=== PATIENT | female | born 1985 | race Caucasian/White ===

== ENCOUNTER 2017-02-13 19:10 | Emergency (ER) | payer SELFPAY ==
[~2017-02-13] VITALS: Ht 165.1 cm; Wt 103.0 kg
[~2017-02-13 19:10] MED LIST: VENTAER INH
[2017-02-13 19:13] VITALS: BP 110/77; PULSE 77; RESP 16; TEMP 97.8; O2SAT 100
[2017-02-13] MEDS ORDERED: IBUP800T23 PO (19:28)
[2017-02-13] MEDS ORDERED: AUGM875T3 PO (19:28)
--- NOTE | 2017-02-13 19:29 | PD ---
HPI Chief Complaint: Oral / Dental Pain or Problem Time Seen by Provider: 19:12 Travel History International Travel<30 days: No Contact w/Intl Traveler<30days: No Traveled to known affect area: No History of Present Illness HPI 31-year-old female presents to emergency department for evaluation of left sided facial pain and swelling times one day. Patient reports she has multiple decaying teeth in the left upper region. She also reports pain and tenderness in the left maxillary sinus with nasal congestion. Symptom onset 1 day ago. She reports the pain is constant, nonradiating, no aggravating or alleviating factors. Severity 5 out of 10. She denies fevers, chills, headache, dizziness , chest pain, shortness of breath, abdominal pain. PFSH Past Medical History Medical History: Denies Significant Hx Diminished Hearing: No Immunizations Current: Yes Tetanus Vaccination: > 5 Years Influenza Vaccination: No ?: Not LMP: 01-13-17 Social History Alcohol Use: No Tobacco Use: No Substance Use: No Allergies-Medications (Allergen,Severity, Reaction): Coded Allergies: Macrobid (Verified Allergy, Severe, Chest pain, 02/13/17) Penicillin (Verified Allergy, Severe, "Heavy chest", 02/13/17) Reported Meds & Prescriptions Reported Meds & Active Scripts Active Ibuprofen 800 Mg Tab 800 Mg PO Q8H PRN Augmentin (Amoxicillin-Clavulanate) 875-125 Mg Tab 1 Tab PO BID Review of Systems Except as stated in HPI: all other systems reviewed are Neg General / Constitutional: No: Fever Eyes: No: Visual changes HENT: Positive: Other (dental pain) Cardiovascular: No: Chest Pain or Discomfort Respiratory: No: Shortness of Breath Gastrointestinal: No: Abdominal Pain Genitourinary: No: Dysuria Musculoskeletal: No: Pain Skin: No Rash Neurologic: No: Weakness Physical Exam Narrative GENERAL: Alert, well-appearing female in no acute distress. SKIN: Focused skin assessment warm/dry. HEAD: Atraumatic. Normocephalic. EYES: Pupils equal and round. No scleral icterus. No injection or drainage. ENT: No nasal bleeding or discharge. Mucous membranes pink and moist. Point tenderness of the left maxillary sinus. No overlying erythema. Dental caries and decay present in tooth number 12-15 with surrounding gum erythema. Uvula midline. NECK: Trachea midline. No JVD. No lymphadenopathy. CARDIOVASCULAR: Regular rate and rhythm. No murmur appreciated. RESPIRATORY: No accessory muscle use. Clear to auscultation. Breath sounds equal bilaterally. GASTROINTESTINAL: Abdomen soft, non-tender, nondistended. Hepatic and splenic margins not palpable. NEUROLOGICAL: Awake and alert. No obvious cranial nerve deficits. Motor grossly within normal limits. Normal speech. PSYCHIATRIC: Appropriate mood and affect; insight and judgment normal. Data Data Last Documented VS Vital Signs Date Time Temp Pulse Resp B/P Pulse Ox O2 Delivery O2 Flow Rate FiO2 02/13/17 19:13 97.8 77 16 110/77 100 MDM Medical Decision Making Medical Screen Exam Complete: Yes Emergency Medical Condition: Yes Differential Diagnosis Dental abscess, dental caries, periodontal disease, sinusitis Narrative Course 31-year-old female since emergency department for evaluation of left sided facial pain and swelling times one day. Patient reports she has multiple decaying teeth in the left upper region. She also reports pain and tenderness in the left maxillary sinus with nasal congestion. On exam patient is nontoxic appearing. She has multiple dental caries in tooth # 12-15. She also has tenderness of the left maxillary sinus. There is no overlying erythema. Patient will be treated with Augmentin for dental abscess versus left maxillary sinusitis. Diagnosis Primary Impression: Dental abscess Referrals: Dentist Additional Instructions: Take antibiotics as prescribed. Make an appointment for follow-up with dentist. Return to emergency department if he developed new or worsening symptoms. Scripts Ibuprofen 800 Mg [id number] Mg PO Q8H PRN (Pain/Inflammation) #30 TAB Prov:Coretta Cottrell 02/13/17 Amoxicillin-Clavulanate (Augmentin)875-125 Mg Tab1 Tab PO BID #20 TAB Prov:Coretta Cottrell 02/13/17 Disposition: 01 DISCHARGE HOME Condition: Stable Coretta Cottrell Feb 13, 2017 19:29
== END 2017-02-13 19:52 | disposition home or self-care (01) ==
LOC: PHEFT 19:10
DX: K04.7 Periapical abscess without sinus (principal); Z88.0 Allergy status to penicillin
CPT/HCPCS: 99283